=== PATIENT | male | born 1985 | race African-American/Black ===

== ENCOUNTER 2025-03-24 14:01 | Emergency (ER) | payer MEDICAID ==
[~2025-03-24] VITALS: Ht 177.8 cm; Wt 103.0 kg
[2025-03-24 14:16] VITALS: BP 144/81; PULSE 78; RESP 16; TEMP 36.7; O2SAT 100
== END 2025-03-24 19:00 | disposition home or self-care (01) ==
LOC: ER 14:01
DX: Z45.2 Encounter for adjustment and management of vascular access device (principal)
CPT/HCPCS: 99281